=== PATIENT | male | born 1995 | race Hispanic/Latino ===

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

== ENCOUNTER 2017-01-23 00:13 | Emergency (ER) | payer OTHER ==
[~2017-01-23] VITALS: Ht 180.3 cm; Wt 81.8 kg
[2017-01-23 00:20] VITALS: BP 101/50; PULSE 66; O2SAT 97
--- NOTE | 2017-01-23 01:30 | ED.REPORT ---
HPI-Allergic Reaction Date of Service Jan 23, 2017 ED Provider: Dr. Elizabeth The pt is a 21 y/o male with hx of asthma who presents to the ED complaining of swelling on the right hand, onset yesterday after a bee sting. The swelling is gradually worsening and radiating up his right arm which is now starting to hurt. He also complains of myalgia. He denies shortness of breath, swelling around the lips, and any other sx at this time. Nursing Notes Stated Complaint: RIGHT HAND SWELLING/ BEE STING Chief Complaint: Allergic Reaction Nursing Notes Reviewed: Yes Allergies: Coded Allergies: No Known Allergies (Unverified , 11/07/16) General Time Seen by MD: 01:29 Chief Complaint Swelling (right hand) Hx Obtained From: Patient Arrived By: Walk-in Onset Occurred: Yesterday Context of Onset: Insect bite/sting Symptom Duration: Since onset Progression Since Onset: Gradually worsening Location: : Arm right Quality: Painful Radiation: Does not radiate Severity: Current: Mild Severity: Maximum: Mild Recent Healthcare: No recent doctor visit Past Medical History Past Medical History Asthma Allergies Past Surgical History None reported Smoking History Former Smoker, Unknown if Ever Smoker Social History Alcohol Use: Denies alcohol use Drug Use: Denies drug use Other Social History: Good social support Occupation lives with parents Ambulatory Status Independent Review of Systems Denies: swelling around the lips Respiratory: Denies: Shortness of breath Complete sys rev & neg: except as marked. Musculoskeletal: Reports: Extremity swelling (right hand), Myalgia Physical Exam Initial Vital Signs Vital Signs (First) Date Time Temp Pulse Resp B/P Pulse Ox O2 Delivery O2 Flow Rate FiO2 01/23/17 00:20 36.8 66 101/50 97 Room Air Initial VS: Reviewed Head / Eyes: Atraumatic, Normocephalic Neck: Supple, Non-tender, Full range of motion Abdomen / GI: Soft, Non-tender, No guarding, No rebound, No distention Extremities: Vascular intact, Neuro intact, No tenderness Neurologic: Alert, Oriented, Nonfocal General/Constitutional: Awake, Alert, No acute distress, Well appearing, Cooperative Respiratory / Chest: Atraumatic, Breath sounds NL, Breath sounds = bilat, No respiratory distress, No rales, No rhonchi, No wheezing Cardiovascular: Heart rate NL, Regular rhythm, Heart sounds NL, No gallop, No murmurs, No rubs Skin: Atraumatic, Color NL, No rash, Warm, Dry, Intact Wrist / Hand: Atraumatic, Full range of motion, No erythema, No deformity, Neurologic intact, Vascular intact Moderate right hand swelling Soft compartments. Procedures Splint Application - Fx Mgt Splint Application- Fx Mgt: Cock-up splint Time: 02:02 Procedure Performed by: Nurse Precise Anatomic Location: Right hand Definitive Fracture Care: Splint Post-Procedure / Complications: Cap refill normal, Post splint vascular nl, Post splint neuro nl, Condition improved, Tolerated procedure well, Patient stable Re-Eval/Medical Decision Re-Evaluation/Progress : Time of Eval: 01:45 Re-Evaluation/Progress Note: Rechecked pt. Discussed diagnosis and plan to discharge. Pt understands and agrees with the plan. F/U instruction and RTER warning given. All questions addressed. Counseled Regarding: Diagnosis, Need for follow-up, When/why to return to ED Discharge & Departure Primary Impression: Cellulitis Site of cellulitis: extremity Site of cellulitis of extremity: upper extremity Laterality: right Qualified Code: L03.113 - Cellulitis of right upper limb Additional Impression: Allergic reaction Encounter type: initial encounter Qualified Code: T78.40XA - Allergy, unspecified, initial encounter Disposition: Home Discharge Condition All VS Reviewed: Yes Condition: Stable Patient Instructions: Cellulitis (ED), General Allergic Reaction (ED) Additional Instructions: I suspect that you are having a moderate local reaction and a skin infection. [id number] Benadryl as directed. Prednisone daily for 3 days. Keflex 4 times daily for 5 days. Follow-up later this week with her primary care physician or the referral clinic. Keep your wrist immobilized to the swelling resolves. Return if any problems or any new or worsening symptoms Referrals: [facility] Scribe Attestation Portions of this note were transcribed by Sridhar Arias. I,, personally performed the history,physical exam and medical decision-making;I reviewed and confirmed the accuracy of the information in the transcribed note. Signed by Tim Ibarra. 01/23/17 Philipp Elizabeth DO Jan 23, 2017 01:30 Sridhar Arias Jan 23, 2017 01:40
[2017-01-23] MEDS ORDERED: Dexamethasone 10 mg/mL Inj IM ONE (01:40)
[2017-01-23 03:45] VITALS: BP 105/60; PULSE 68; O2SAT 97
== END 2017-01-23 02:45 | disposition home or self-care (01) ==
LOC: SED 00:13
DX: T63.441A Toxic effect of venom of bees, accidental (unintentional), initial encounter (principal); Y93.89 Activity, other specified; Y92.89 Other specified places as the place of occurrence of the external cause; Y99.8 Other external cause status; L03.113 Cellulitis of right upper limb; M79.1 Myalgia; J45.909 Unspecified asthma, uncomplicated; Z87.891 Personal history of nicotine dependence
CPT/HCPCS: 96372; 99284; J1100; J1200